=== PATIENT | male | born 1990 | race Caucasian/White ===

== ENCOUNTER 2018-04-16 14:55 | Emergency (ER) | payer MEDICAID ==
[~2018-04-16] VITALS: Ht 162.6 cm; Wt 68.0 kg
[2018-04-16 15:48] VITALS: BP 142/93
== END 2018-04-16 17:07 | disposition home or self-care (01) ==
LOC: ED 17:01
DX: S70.11XA Contusion of right thigh, initial encounter (principal); I82.412 Acute embolism and thrombosis of left femoral vein; W34.00XA Accidental discharge from unspecified firearms or gun, initial encounter; Y93.89 Activity, other specified; Y99.8 Other external cause status; Y92.89 Other specified places as the place of occurrence of the external cause
CPT/HCPCS: 99284

== ENCOUNTER 2018-05-14 10:39 | Emergency (ER) | payer MEDICAID ==
[~2018-05-14] VITALS: Ht 162.6 cm; Wt 63.8 kg
[2018-05-14 11:12] LABS: BASOPHILS # (AUTO) 0.06 x10^3/uL (0-0.1); BASOPHILS % (AUTO) 1 % (0-1); EOSINOPHILS # (AUTO) 0.09 x10^3/uL (0-0.4); EOSINOPHILS % (AUTO) 1 % (1-7); LYMPHOCYTES # (AUTO) 1.47 x10^3/uL (1-3.4); LYMPHOCYTES % (AUTO) 13 % (22-44); MD NO; MEAN CORPUSCULAR HEMOGLOBIN 33.2 pg (27.5-34.5); MEAN CORPUSCULAR HGB CONC 34.1 g/dL (33.2-36.2); MEAN CORPUSCULAR VOLUME 97.2 fL (81-97); MEAN PLATELET VOLUME 7.9 fL (7.4-10.4); MONOCYTES # (AUTO) 0.58 x10^3/uL (0.2-0.8); MONOCYTES % (AUTO) 5 % (2-9); NEUTROPHILS # (AUTO) 9.12 x10^3/uL (1.8-6.8); NEUTROPHILS % (AUTO) 81 % (42-75); PLATELET COUNT 362 x10^3/uL (130-400); RED BLOOD COUNT 4.22 x10^6/uL (4.38-5.82); RED CELL DISTRIBUTION WIDTH 14.6 % (9.4-14.8)
[2018-05-14 11:20] LABS: ALBUMIN 3.4 g/dL (3.4-5.0); ANION GAP 7 mmol/L (5-15); CALCIUM 8.5 mg/dL (8.5-10.1); CHLORIDE 107 mmol/L (98-107); CREATININE 1.08 mg/dL (0.7-1.3)
[2018-05-14] MEDS ORDERED: OMNIPAQUE 350 MG/ML, 150 ML BOTTLE ONE (13:57)
[2018-05-14 15:33] VITALS: BP 126/89
== END 2018-05-14 15:36 | disposition home or self-care (01) ==
LOC: ED 12:05
DX: G89.11 Acute pain due to trauma (principal); M25.561 Pain in right knee; F17.200 Nicotine dependence, unspecified, uncomplicated
CPT/HCPCS: 29505; 36415; 73552; 73701; 80048; 82040; 82550; 85025; 99285; Q9967

== ENCOUNTER 2018-09-04 23:30 | Emergency (ER) | payer MEDICAID ==
[~2018-09-04] VITALS: Ht 162.6 cm; Wt 59.8 kg
[2018-09-04 23:32] VITALS: BP 124/69
== END 2018-09-05 00:13 | disposition home or self-care (01) ==
LOC: ED 09-05 00:07
DX: S21.112D Laceration without foreign body of left front wall of thorax without penetration into thoracic cavity, subsequent encounter (principal)
CPT/HCPCS: 99281

== ENCOUNTER 2018-11-17 21:17 | Emergency (ER) | payer MEDICAID ==
[~2018-11-17] VITALS: Ht 160 cm; Wt 70.0 kg
--- NOTE | 2018-11-17 21:25 | NUR ---
PT BIB [facility] C/O EATING FOOD AT [facility]RIENDS HOUSE AND FEELING FACE/THROAT SWELLING CLOSE AND DIFFICULTY BREATHING. [facility] ON SCENE NOTED POOR PULSES IN RADIAL ARTERIES. PT GIVEN 0.3 IM EPI AND 1 DUONEB TX AND ON 6L NC FOR RA SPO2 OF 82%. PT SAT TO MID 90'S AFTER TX. 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 PT ON 4L NC IN ED AND DENIES ANY SWELLING AT THIS TIME. "I FEEL LIKE I AM BETTER." PT DENIES ANY ALLERGIES PRIOR TO TODAY. ALL MONITORING APPLIED. VSS. CALL LIGHT WITHIN REACH.
[2018-11-17] MEDS ORDERED: FAMOTIDINE 20 MG/2 ML ONE (21:57)
[2018-11-17] MEDS ORDERED: FAMOTIDINE 20 MG TABLET PO ONE (22:00)
[2018-11-17] MEDS ORDERED: FAMOTIDINE 20 MG TABLET ONE (22:03)
[2018-11-17 22:33] LABS: BASOPHILS # (AUTO) 0.01 x10^3/uL (0-0.1); BASOPHILS % (AUTO) 0 % (0-1); EOSINOPHILS # (AUTO) 0.01 x10^3/uL (0-0.4); EOSINOPHILS % (AUTO) 0 % (1-7); LYMPHOCYTES # (AUTO) 1.25 x10^3/uL (1-3.4); LYMPHOCYTES % (AUTO) 12 % (22-44); MD NO; MEAN CORPUSCULAR HEMOGLOBIN 32.4 pg (27.5-34.5); MEAN CORPUSCULAR HGB CONC 33.7 g/dL (33.2-36.2); MEAN CORPUSCULAR VOLUME 96.1 fL (81-97); MEAN PLATELET VOLUME 7.4 fL (7.4-10.4); MONOCYTES # (AUTO) 0.21 x10^3/uL (0.2-0.8); MONOCYTES % (AUTO) 2 % (2-9); NEUTROPHILS # (AUTO) 9.18 x10^3/uL (1.8-6.8); NEUTROPHILS % (AUTO) 86 % (42-75); PLATELET COUNT 250 x10^3/uL (130-400); RED BLOOD COUNT 4.28 x10^6/uL (4.38-5.82)
--- NOTE | 2018-11-17 22:38 | NUR ---
PT RESTING COMFORTABLY ON GURNEY. O2 REMOVED AND PT MAINTAINING O2 SATS. MD AWARE. VSS. CALL LIGHT WITHIN REACH. PT TB MONITORED.
[2018-11-17 22:45] LABS: ALANINE AMINOTRANSFERASE 54 U/L (12-78); ALBUMIN 3.3 g/dL (3.4-5.0); ANION GAP 8 mmol/L (5-15); CALCIUM 7.8 mg/dL (8.5-10.1); CHLORIDE 110 mmol/L (98-107); CREATININE 1.03 mg/dL (0.7-1.3)
[2018-11-17 22:47] LABS: ALKALINE PHOSPHATASE 141 U/L (45-117); BILIRUBIN,TOTAL 0.2 mg/dL (0.2-1.0); TOTAL PROTEIN 6.5 g/dL (6.4-8.2)
--- NOTE | 2018-11-18 01:15 | NUR ---
PT RESTING COMFORTABLY ON GURNEY. O2 REMOVED AND PT MAINTAINING O2 SATS. MD AWARE. VSS. CALL LIGHT WITHIN REACH. PT TB MONITORED.
[2018-11-18 02:10] VITALS: BP 103/73
--- NOTE | 2018-11-18 02:14 | NUR ---
Note undone in EDM - 11/18/18 at 0214 by EDWARD PT STATES WOUND LL EXTREMITY GETTING BIGGER OVER LAST COUPLE DAYS. STATES WOUNDxMULTIPLE MONTHS, REDNESS AND SWELLING ON LL EXTREMITY. PT HAS MULTIPLE WOUNDS ON R+DANIEL EXTREMITIES. MILD REDNESS AND SWELLING ON ARMS WELL. DENIES FEVERS. VSS. CMS INTACT. CALL LIGHT WITHIN REACH.
--- NOTE | 2018-11-18 02:14 | NUR ---
PT RESTING COMFORTABLY ON GURNEY. O2 REMOVED AND PT MAINTAINING O2 SATS. MD AWARE. VSS. CALL LIGHT WITHIN REACH. PT TB MONITORED.
== END 2018-11-18 03:19 | disposition home or self-care (01) ==
LOC: ED 11-18 02:33
DX: T78.40XA Allergy, unspecified, initial encounter (principal); X58.XXXA Exposure to other specified factors, initial encounter
CPT/HCPCS: 36415; 80053; 80307; 85025; 93005; 99284; J7512